=== PATIENT | female | born 1950 | race Caucasian/White ===

== ENCOUNTER 2016-07-31 09:46 | Outpatient (CLI) ==
--- NOTE | 2016-07-31 10:57 | US ---
EXAM: Ultrasound bilateral carotid duplex HISTORY: Dizziness and hypertension with numbness COMPARISON: None TECHNIQUE: Sonographic, wave spectral and color Doppler evaluation of the carotids were performed. FINDINGS: The right carotid is tortuous, but patent in appearance with scattered mild atherosclerotic plaque v isualized. The right ICA peak systolic velocity measures 1.2 cm/sec which is normal. The ICA / CCA peak systolic velocity ratio is 1.2 and ICA end-diastolic velocity is 0.3 cm/sec. A sp ectral analysis is unremarkable. The left carotid is tortuous, but patent in appearance with scattered mild atherosclerotic plaque vi sualized. The left ICA peak systolic velocity measures 1.0 cm/sec which is normal. The left ICA / CCA peak systolic velocity ratio is 1.1 and ICA end-diastolic velocity is 0.2 cm/sec. Wave spectral analysis is unremarkable. Vertebral arteries demonstrate antegrade flow bilaterally. IMPRESSION: Bilateral tortuous carotid arteries with minimal scattered atherosclerotic disease and no sonographi c or Doppler evidence of hemodynamically significant stenosis.
== END 2016-07-31 09:47 | disposition home or self-care (01) ==
LOC: RAD 09:46
PROVIDERS: ATTEND Internal Medicine
DX: R42 Dizziness and giddiness (principal); I10 Essential (primary) hypertension; E78.5 Hyperlipidemia, unspecified

== ENCOUNTER 2018-02-18 06:39 | Outpatient (CLI) ==
--- NOTE | 2018-02-21 11:44 | ECHO2D ---
Date of Exam: 02/17/18 Ordering Physician: DR. LYNDA LENTZ Room #: OP Reason for Echo: SOB, LEG EDEMA M-Mode Normal Adult Results LV Dimensions Normal Adult Results AoV Opening excursions >1.6 >1.6 LVEDD-base- 3.5-5.8 5.0 Ao root dimensions 2.0-3.7 2.9 LVESD-base- 3.1-4.6 L. Atrium dimensions 1.9-3.8 4.6 Post. Wall thickness 0.8-1.1 1.2 IV septum (thickness) 0.7-1.2 1.2 Post. Wall excursion 0.72-1.3 NORMAL Septal motion NORMAL Systolic motion R. Ventricular cavity 1.5-2.0 NORMAL LVEF 60% 54% Paradoxical septal wall motion NORMAL 2-D : 2-D M Mode Echocardiogram was performed using apical four chamber and left parasternal long and short axis views. Mitral, tricuspid and aortic valves appear to be normal. Contractility of the left ventricle seems to be normal, so is the cavity size. Enlarged left atrial cavity. Aortic root appears to be normal. There is no pericardial effusion. There is no thrombus noted in the left ventricular or left aortic cavity. No mitral valve prolapse noted M-MODE: MV: NORMAL AV: NORMAL TV: NORMAL PV: CHAMBER SIZE: ENLARGED LEFT ATRIAL CAVITY WALL MOTION: NORMAL PERICARDIUM: NORMAL INTERPRETATION: 1. BORDERLINE LEFT VENTRICULAR HYPERTROPHY 2. ENLARGED LEFT ATRIAL CAVITY 3. NORMAL LEFT VENTRICULAR CONTRACTILITY 4. NORMAL VALVES MTDD
== END 2018-02-18 06:40 | disposition home or self-care (01) ==
LOC: CAR 06:39
PROVIDERS: ATTEND Internal Medicine
DX: R06.02 Shortness of breath (principal); R60.0 Localized edema; I10 Essential (primary) hypertension
CPT/HCPCS: 93005; 93010

== ENCOUNTER 2018-08-09 10:17 | Outpatient (CLI) | END 2018-08-09 10:18 | disposition home or self-care (01) | LOC: LAB 10:17 | PROVIDERS: ATTEND Internal Medicine | DX: E87.5 Hyperkalemia (principal) | CPT/HCPCS: 36415; 80053 ==